=== PATIENT | male | born 1960 | race Caucasian/White ===

== ENCOUNTER 2019-03-20 10:50 | Emergency (ER) | payer MEDICARE, OTHER ==
[~2019-03-20] VITALS: Ht 172.7 cm; Wt 79.5 kg
[~2019-03-20 10:50] MED LIST: ALBU8HFA IH; LEVO50TA4 PO; MULT-29 PO; PANT40TA25 PO; POTA8CAP20 PO; QUET100T PO; TRAZ-252 PO
[2019-03-20 11:12] VITALS: BP 134/97
== END 2019-03-20 11:40 | disposition home or self-care (01) ==
LOC: EMS 10:51
DX: S01.01XD Laceration without foreign body of scalp, subsequent encounter (principal); I10 Essential (primary) hypertension; E03.9 Hypothyroidism, unspecified; F20.9 Schizophrenia, unspecified; E78.00 Pure hypercholesterolemia, unspecified; F31.9 Bipolar disorder, unspecified; F17.210 Nicotine dependence, cigarettes, uncomplicated; F15.90 Other stimulant use, unspecified, uncomplicated; Z48.02 Encounter for removal of sutures; Z88.0 Allergy status to penicillin; Z79.899 Other long term (current) drug therapy; W45.8XXD Other foreign body or object entering through skin, subsequent encounter

== ENCOUNTER 2023-06-26 11:05 | Emergency (ER) | payer MEDICARE, MEDICAID ==
[~2023-06-26] VITALS: Ht 172.7 cm; Wt 68.2 kg
[~2023-06-26 11:05] MED LIST changes: +ALBU18HF12 IH; -ALBU8HFA IH; +PANT-31 PO; -PANT40TA25 PO
[2023-06-26 11:15] VITALS: TEMP 98
[2023-06-26] MEDS ORDERED: LIDOCAINE 1% 10 ML VIAL SQ ONE (11:30)
[2023-06-26] MEDS ORDERED: DOXYCYCLINE HYCLATE 100 MG TABLET PO ONE (11:30)
[2023-06-26] MEDS ORDERED: BACITRACIN 0.9 GM PACKET OINTMENT TP ONE (11:30)
[2023-06-26] MEDS ORDERED: ACETAMINOPHEN 500 MG TABLET PO ONE (11:30)
[2023-06-26 11:40] VITALS: BP 155/89; PULSE 90; RESP 18
[2023-06-26] MEDS ORDERED: DOXY-354 PO (11:46)
[2023-06-26] MEDS ORDERED: ACET-3385 PO (11:46)
== END 2023-06-26 12:04 | disposition home or self-care (01) ==
LOC: EMS 11:08
DX: L02.413 Cutaneous abscess of right upper limb (principal); F31.9 Bipolar disorder, unspecified; E78.00 Pure hypercholesterolemia, unspecified; I10 Essential (primary) hypertension; E03.9 Hypothyroidism, unspecified; F20.9 Schizophrenia, unspecified; F17.210 Nicotine dependence, cigarettes, uncomplicated; F15.90 Other stimulant use, unspecified, uncomplicated; Z88.0 Allergy status to penicillin
CPT/HCPCS: 99283; 10060; J3490

== ENCOUNTER 2023-06-28 14:12 | Emergency (ER) | payer MEDICARE, MEDICAID ==
[~2023-06-28] VITALS: Ht 172.7 cm; Wt 77.3 kg
[~2023-06-28 14:12] MED LIST changes: +ACET-3385 PO; +DOXY-354 PO
[2023-06-28 14:19] VITALS: TEMP 98.7
[2023-06-28] MEDS ORDERED: BACITRACIN 0.9 GM PACKET OINTMENT TP ONE (14:30)
[2023-06-28] MEDS ORDERED: AMLO5TAB66 PO (14:41)
[2023-06-28] MEDS ORDERED: ATOR40TA71 PO (14:41)
[2023-06-28] MEDS ORDERED: LEVO150T11 PO (14:41)
[2023-06-28] MEDS ORDERED: MULT-248 PO (14:41)
[2023-06-28] MEDS ORDERED: ASPI-1444 PO (14:41)
[2023-06-28 15:48] VITALS: BP 165/97; PULSE 88; RESP 17
== END 2023-06-28 15:50 | disposition home or self-care (01) ==
LOC: EMS 14:12
DX: L02.511 Cutaneous abscess of right hand (principal); F31.9 Bipolar disorder, unspecified; E78.00 Pure hypercholesterolemia, unspecified; I10 Essential (primary) hypertension; E03.9 Hypothyroidism, unspecified; F20.9 Schizophrenia, unspecified; F17.210 Nicotine dependence, cigarettes, uncomplicated; F15.90 Other stimulant use, unspecified, uncomplicated; Z88.0 Allergy status to penicillin
CPT/HCPCS: 99282; Z7502; Z7610

== ENCOUNTER 2024-01-18 17:56 | Emergency (ER) | payer MEDICARE, MEDICAID ==
[~2024-01-18] VITALS: Ht 172.7 cm; Wt 77.3 kg
[~2024-01-18 17:56] MED LIST changes: +AMLO5TAB66 PO; +ASPI-1444 PO; +ATOR40TA71 PO; +LEVO150T11 PO; -LEVO50TA4 PO; +MULT-248 PO; -MULT-29 PO; -PANT-31 PO; -POTA8CAP20 PO; -QUET100T PO; -TRAZ-252 PO
[2024-01-18 18:04] VITALS: BP 181/105; PULSE 91; RESP 20; TEMP 98.4
[2024-01-18] MEDS ORDERED: IBUP-1492 PO (22:38)
[2024-01-18] MEDS: IBUPROFEN 600 MG TABLET PO ONE (23:01)
== END 2024-01-18 23:02 | disposition home or self-care (01) ==
LOC: EMS 17:56
DX: S00.83XA Contusion of other part of head, initial encounter (principal); E78.00 Pure hypercholesterolemia, unspecified; I10 Essential (primary) hypertension; E03.9 Hypothyroidism, unspecified; F20.9 Schizophrenia, unspecified; F17.210 Nicotine dependence, cigarettes, uncomplicated; F15.90 Other stimulant use, unspecified, uncomplicated; Z88.0 Allergy status to penicillin; Y08.89XA Assault by other specified means, initial encounter; Y93.89 Activity, other specified; Y92.89 Other specified places as the place of occurrence of the external cause; Y99.8 Other external cause status
CPT/HCPCS: 70450; 70486; 99284

== ENCOUNTER 2024-03-19 09:51 | Emergency (ER) | payer MEDICARE, MEDICAID ==
[~2024-03-19] VITALS: Ht 172.7 cm; Wt 77.0 kg
[~2024-03-19 09:51] MED LIST changes: +IBUP-1492 PO
[2024-03-19 09:53] VITALS: TEMP 98.4
[2024-03-19] MEDS: PROPARACAINE HCL 0.5% 15 ML OPHTHALMIC SOLUTION OS ONE (11:33)
[2024-03-19] MEDS: FLUORESCEIN SODIUM 1 MG STRIP OS ONE (11:33)
[2024-03-19 12:20] VITALS: BP 140/99; PULSE 82; RESP 18; O2SAT 98
[2024-03-19] MEDS: HYDROCODONE/ACETAMINOPHEN 5-325 MG TABLET PO ONE (12:23)
[2024-03-19] MEDS: IBUPROFEN 400 MG TABLET PO ONE (12:23)
[2024-03-20] MEDS ORDERED: AZIT250T9 PO (11:30)
== END 2024-03-19 12:32 | disposition home or self-care (01) ==
LOC: EMS 09:51
DX: B30.9 Viral conjunctivitis, unspecified (principal); H20.9 Unspecified iridocyclitis; F31.9 Bipolar disorder, unspecified; E78.00 Pure hypercholesterolemia, unspecified; E03.9 Hypothyroidism, unspecified; F20.9 Schizophrenia, unspecified; H54.62 Unqualified visual loss, left eye, normal vision right eye; I10 Essential (primary) hypertension; F17.210 Nicotine dependence, cigarettes, uncomplicated; F15.90 Other stimulant use, unspecified, uncomplicated; Z79.82 Long term (current) use of aspirin; Z88.0 Allergy status to penicillin
CPT/HCPCS: 99283

== ENCOUNTER 2024-03-20 08:13 | Emergency (ER) | payer MEDICARE, MEDICAID ==
[~2024-03-20] VITALS: Ht 172.7 cm; Wt 77.2 kg
[2024-03-20] MEDS ORDERED: IOHEXOL 350 MG/ML 100 ML VIAL ONE (08:53)
[2024-03-20] MEDS ORDERED: SODIUM CHLORIDE 0.9% 100 ML ONE (08:53)
[2024-03-20 09:01] LABS: EOSINOPHILS % (AUTO) 2.1 % (1.0-6.0); HEMATOCRIT 41.2 % (41-53); HEMOGLOBIN 13.8 g/dL (13.5-17.5); LYMPHOCYTES # (AUTO) 0.9 K/uL (1.0-4.8); MEAN CORPUSCULAR HEMOGLOBIN 29.8 pg (26.0-34.0); MEAN CORPUSCULAR HGB CONC 33.6 G/dL (31.0-37.0); MEAN CORPUSCULAR VOLUME 89 fL (80-100); MONOCYTES # (AUTO) 1.1 K/uL (0.1-1.0); MONOCYTES % (AUTO) 12.5 % (2.0-9.0); NEUTROPHILS # (AUTO) 6.2 K/uL (1.8-7.7); NEUTROPHILS % (AUTO) 73.4 % (40.0-70.0); PLATELET COUNT (AUTO) 262 K/uL (150-450); RED BLOOD CELL COUNT(AUTO) 4.65 MIL/uL (4.50-5.90); WHITE BLOOD COUNT (AUTO) 8.5 K/uL (4.5-11.0)
[2024-03-20] MEDS: ACETAMINOPHEN 500 MG TABLET PO ONE (09:09)
[2024-03-20 09:12] LABS: ALCOHOL, BLOOD (SERUM) < 3 mg/dL (0-10)
[2024-03-20 09:14] LABS: ANION GAP 7 mmol/L (8-16); CALCIUM, TOTAL 8.6 mg/dL (8.8-10.5); CARBON DIOXIDE 27 mmol/L (22-29); CHLORIDE 101 mmol/L (98-107); CREATININE 0.94 mg/dL (0.60-1.30); GLOMERULAR FILTR. RATE CALC > 60 mL/min (>60); GLUCOSE,RANDOM 97 mg/dL (70-110); POTASSIUM 3.5 mmol/L (3.5-5.1); SODIUM SERUM 135 mmol/L (136-145); UREA NITROGEN, BLOOD 20 mg/dL (7-18)
[2024-03-20 09:40] LABS: THYROID STIMULATING HORMONE 5.71 uIU/mL (0.36-3.74)
[2024-03-20 10:26] LABS: APPEARANCE,URINE HAZY (CLEAR); BILIRUBIN,URINE NEGATIVE (NEGATIVE); COLOR,URINE LIGHT YELLOW (YELLOW); GLUCOSE, URINE (UA) NEGATIVE (NEGATIVE); KETONES,URINE TRACE mg/dL (NEGATIVE); LEUKOCYTE ESTERASE ,URINE NEGATIVE (NEGATIVE); NITRATE,URINE NEGATIVE (NEGATIVE); OCCULT BLOOD,URINE NEGATIVE (NEGATIVE); PROTEIN,URINE TRACE mg/dL (NEGATIVE); SPECIFIC GRAVITIY, URINE 1.036 (1.003-1.030); UROBILINOGEN,URINE <=1.0 mg/dL (<=1.0)
[2024-03-20 10:34] LABS: ALCOHOL, URINE DRUG SCREEN NEGATIVE (NEGATIVE); AMPHET/METH SCREEN,URINE POSITIVE (NEGATIVE); BARBITURATE SCREEN, URINE NEGATIVE (NEGATIVE); BENZODIAZEPINES SCREEN,URINE NEGATIVE (NEGATIVE); CANNABINOID SCREEN,URINE NEGATIVE (NEGATIVE); COCAINE SCREEN,URINE NEGATIVE (NEGATIVE); METHADONE SCREEN, URINE NEGATIVE (NEGATIVE); OPIATE SCREEN,URINE NEGATIVE (NEGATIVE); PHENCYCLIDINE SCREEN,URINE NEGATIVE (NEGATIVE)
[2024-03-20 11:30] VITALS: TEMP 97
[2024-03-20] MEDS ORDERED: AZIT250T9 PO (11:30)
[2024-03-20] MEDS: LEVOTHYROXINE SODIUM 150 MCG TABLET PO ONE (12:19)
[2024-03-20 12:30] VITALS: BP 154/90; PULSE 77; RESP 20; O2SAT 96
== END 2024-03-20 12:30 | disposition home or self-care (01) ==
LOC: EMS 08:13
DX: J01.90 Acute sinusitis, unspecified (principal); H33.22 Serous retinal detachment, left eye; F15.10 Other stimulant abuse, uncomplicated; H54.62 Unqualified visual loss, left eye, normal vision right eye; E03.9 Hypothyroidism, unspecified; F31.9 Bipolar disorder, unspecified; E78.00 Pure hypercholesterolemia, unspecified; F20.9 Schizophrenia, unspecified; I10 Essential (primary) hypertension; F17.210 Nicotine dependence, cigarettes, uncomplicated; Z88.0 Allergy status to penicillin; Z59.00 Homelessness unspecified
CPT/HCPCS: 99285; 70470; 80048; 81003; 84443; 85025; 36415; 70487; 80307; G0480; Q9967; J7050

== ENCOUNTER 2024-06-28 13:34 | Emergency (ER) | payer MEDICARE, MEDICAID ==
[~2024-06-28] VITALS: Ht 170.2 cm; Wt 90.9 kg
[2024-06-28 13:44] VITALS: BP 145/90; PULSE 94; RESP 18; TEMP 98.1; O2SAT 99
[2024-06-28] MEDS: BACITRACIN 28 GM OINTMENT TP ONE (15:36)
[2024-06-28] MEDS: SULFAMETHOX/TRIMETH DS 800-160 MG/TABLET PO ONE (15:36)
[2024-06-28] MEDS: CLINDAMYCIN HCL 150 MG CAPSULE PO ONE (15:36)
[2024-06-28] MEDS ORDERED: SULF-261 PO (15:43)
[2024-06-28] MEDS ORDERED: CLIN-26 PO (15:43)
[2024-06-28] MEDS: PERTUSS(ACELL),DIPH,TET/PF 0.5 ML SYRINGE [ADULT] IM. ONE (16:08)
== END 2024-06-28 16:11 | disposition home or self-care (01) ==
LOC: EMS 13:48
DX: T23.101A Burn of first degree of right hand, unspecified site, initial encounter (principal); T31.0 Burns involving less than 10% of body surface; M77.12 Lateral epicondylitis, left elbow; E78.00 Pure hypercholesterolemia, unspecified; E03.9 Hypothyroidism, unspecified; F20.9 Schizophrenia, unspecified; I10 Essential (primary) hypertension; H54.62 Unqualified visual loss, left eye, normal vision right eye; F17.210 Nicotine dependence, cigarettes, uncomplicated; F15.90 Other stimulant use, unspecified, uncomplicated; Z88.0 Allergy status to penicillin; X08.8XXA Exposure to other specified smoke, fire and flames, initial encounter; Y93.89 Activity, other specified; Y92.89 Other specified places as the place of occurrence of the external cause; Y99.8 Other external cause status
CPT/HCPCS: 16020; 90471; 90715; 99283

== ENCOUNTER 2024-12-17 08:28 | Emergency (ER) | payer MEDICARE, MEDICAID ==
[~2024-12-17] VITALS: Ht 170.2 cm; Wt 77.0 kg
[~2024-12-17 08:28] MED LIST changes: -ACET-3385 PO; -ALBU18HF12 IH; -AMLO5TAB66 PO; -ASPI-1444 PO; -ATOR40TA71 PO; +CLIN-26 PO; -DOXY-354 PO; -IBUP-1492 PO; -LEVO150T11 PO; -MULT-248 PO; +SULF-261 PO
[2024-12-17 10:12] VITALS: BP 126/81; PULSE 80; RESP 20; TEMP 97.3; O2SAT 98
[2024-12-17] MEDS: PERMETHRIN 5% 60 GM CREAM TP ONE (10:24)
== END 2024-12-17 10:31 | disposition home or self-care (01) ==
LOC: EMS 08:28
DX: B86 Scabies (principal); I10 Essential (primary) hypertension; E78.00 Pure hypercholesterolemia, unspecified; E03.9 Hypothyroidism, unspecified; F20.9 Schizophrenia, unspecified; F31.9 Bipolar disorder, unspecified; F17.210 Nicotine dependence, cigarettes, uncomplicated; Z88.0 Allergy status to penicillin
CPT/HCPCS: 99282; Z7502; Z7610

== ENCOUNTER 2025-02-13 08:27 | Emergency (ER) | payer MEDICARE, MEDICAID ==
[~2025-02-13] VITALS: Ht 172.7 cm; Wt 77.3 kg
[~2025-02-13 08:27] MED LIST changes: -CLIN-26 PO; +LEVO-72 PO; +LINE600T14 PO; +METR500 PO; -SULF-261 PO
[2025-02-13 08:56] VITALS: BP 151/92; PULSE 84; RESP 18; TEMP 98; O2SAT 98
[2025-02-13] MEDS: DiphenhydrAMINE HCL 25 MG/10 ML SOLUTION UDCUP PO ONE (10:37)
[2025-02-13] MEDS ORDERED: DIPH25CA85 PO (11:16)
[2025-02-13] MEDS ORDERED: LINE600T14 PO (11:16)
== END 2025-02-13 11:42 | disposition home or self-care (01) ==
LOC: EMS 09:41
DX: L25.9 Unspecified contact dermatitis, unspecified cause (principal); E03.9 Hypothyroidism, unspecified; E78.00 Pure hypercholesterolemia, unspecified; F20.9 Schizophrenia, unspecified; F31.9 Bipolar disorder, unspecified; I10 Essential (primary) hypertension; F17.210 Nicotine dependence, cigarettes, uncomplicated; F15.90 Other stimulant use, unspecified, uncomplicated; Z88.0 Allergy status to penicillin; Z79.899 Other long term (current) drug therapy
CPT/HCPCS: 99283